=== PATIENT | male | born 1990 | race Two or more races ===

== ENCOUNTER 2019-03-24 18:08 | Emergency (ER) | payer BC ==
[~2019-03-24] VITALS: Ht 167.6 cm; Wt 92.6 kg
[2019-03-24 18:59] VITALS: BP 132/88
== END 2019-03-24 20:29 | disposition home or self-care (01) ==
LOC: ED 20:23
DX: L03.113 Cellulitis of right upper limb (principal); M79.621 Pain in right upper arm
CPT/HCPCS: 99283